=== PATIENT | male | born 1965 | race African-American/Black ===

== ENCOUNTER 2018-01-10 19:41 | Inpatient (IN) | payer MEDICAID ==
[~2018-01-10] VITALS: Ht 170.2 cm; Wt 98.0 kg
[2018-01-10] MEDS ORDERED: ACETAMINOPHEN 325MG TABLET PO STA (19:59)
[2018-01-10] MEDS ORDERED: SODIUM CHLORIDE 0.9% 1,000 ML IV ONE (19:59)
[2018-01-10] MEDS ORDERED: KETOROLAC 30MG/ML VIAL IV ONE (20:00)
[2018-01-10 20:31] LABS: BASOPHILS % 0.4 % (0.0-2.0); EOSINOPHILS % 0.8 % (0.0-5.0); HEMATOCRIT. 44.1 % (42.0-52.0); HEMOGLOBIN. 14.4 g/dL (14.0-18.0); LYMPHOCYTES % 9.1 % (20.0-50.0); MEAN CORPUSCULAR HEMOGLOBIN 25.2 pg (28.0-32.0); MEAN CORPUSCULAR VOLUME 77.2 fL (80.0-94.0); MEAN PLATELET VOLUME 9.3 fl (7.4-10.4); MONOCYTES % 6.9 % (2.0-8.0); NEUTROPHILS % 82.8 % (40.0-76.0); PLATELET 223 x1000/uL (130-400); RED BLOOD CELL COUNT 5.72 mill/uL (4.7-6.1); RED CELL DISTRIBUTION WIDTH 16.3 % (11.6-14.6)
[2018-01-10 20:40] LABS: INR 1.2; PROTHROMBIN TIME 12.2 sec (9.4-11.6)
[2018-01-10 20:42] LABS: CHLORIDE 101 mEq/L (98-107)
[2018-01-10] MEDS ORDERED: LEVOFLOXACIN 750MG PREMIX 150 ML IV ONE (20:45)
[2018-01-10] MEDS ORDERED: IPRATROPIUM/ALBUTEROL 0.5-3(2.5)MG/3ML NEB INH PRN (23:00)
[2018-01-10] MEDS ORDERED: ACETAMINOPHEN 325MG TABLET PO PRN (23:00)
[2018-01-10] MEDS ORDERED: HYDROCODONE/ACETAMINOPHEN 5/325MG TABLET PO PRN (23:00)
[2018-01-10] MEDS ORDERED: MAGNESIUM/ALUMINUM HYDROXIDE/SIMETHICONE 30ML UDC PO PRN (23:00)
[2018-01-10] MEDS ORDERED: DOCUSATE SODIUM 100MG CAPSULE PO PRN (23:00)
[2018-01-10] MEDS ORDERED: ONDANSETRON HCL 4MG/2ML VIAL IV PRN (23:00)
[2018-01-11] VITALS (10 sets, daily range): BP systolic 119–198; BP diastolic 65–143
[2018-01-11] LABS: CHLORIDE 102 mEq/L (98-107)
[2018-01-11] MEDS: CLONIDINE 0.1MG TABLET PO PRN ×4 (01:02→17:05)
[2018-01-11] MEDS: SODIUM CHLORIDE 0.9% 1,000 ML IV SCH ×2 (04:05→16:58)
[2018-01-11] MEDS ORDERED: DEXTROSE 50% WATER 50ML SYRINGE IV PRN (04:45)
[2018-01-11] MEDS ORDERED: CEFTRIAXONE 1 G PREMIX 50 ML IV SCH (05:00)
[2018-01-11] MEDS: BLOOD SUGAR DIAGNOSTIC STRIP TEST SCH ×4 (05:59→21:43)
[2018-01-11] MEDS ORDERED: AZITHROMYCIN 500 MG in DEXT 5% WATER 250 ML IV SCH (06:00)
[2018-01-11] MEDS: NIFEDIPINE XL 60MG TAB PO SCH (07:00)
[2018-01-11 07:08] LABS: CLARITY URINE CLEAR (CLEAR); COLOR URINE DARK YELLOW (YELLOW); KETONES URINE TRACE (NEGATIVE); LEUKOCYTE ESTERASE URINE NEGATIVE (NEGATIVE); NITRITE URINE NEGATIVE (NEGATIVE); OCCULT BLOOD URINE NEGATIVE (NEGATIVE); PROTEIN URINE 3+ (NEGATIVE); SPECIFIC GRAVITY URINE 1.037 (1.005-1.030)
[2018-01-11 07:46] LABS: *AMPHETAMINES SCREEN URINE NEGATIVE (NEGATIVE); *BARBITURATES SCREEN URINE NEGATIVE (NEGATIVE); *BENZODIAZEPINES SCREEN URINE NEGATIVE (NEGATIVE); *COCAINE SCREEN URINE PRESUMTIVE POSITIVE (NEGATIVE); CANNABINOID URINE SCREEN PRESUMTIVE POSITIVE (NEGATIVE); METHADONE URINE SCREEN NEGATIVE (NEGATIVE); OPIATES URINE SCREEN PRESUMTIVE POSITIVE (NEGATIVE); PHENCYCLIDINE URINE SCREEN NEGATIVE (NEGATIVE)
[2018-01-11] MEDS: ENOXAPARIN 30MG/0.3ML SYR SUBCUT SCH ×2 (08:05→21:45)
[2018-01-11] MEDS: INSULIN LISPRO 100 UNITS/ML SUBCUT SCH ×4 (08:05→21:55)
[2018-01-11] MEDS ORDERED: HYDRALAZINE 20MG/ML VIAL IV PRN (10:15)
[2018-01-11 10:29] LABS: BASOPHILS % 0.5 % (0.0-2.0); EOSINOPHILS % 2.3 % (0.0-5.0); HEMATOCRIT. 42.2 % (42.0-52.0); HEMOGLOBIN. 13.7 g/dL (14.0-18.0); MEAN CORPUSCULAR HEMOGLOBIN 24.9 pg (28.0-32.0); MEAN CORPUSCULAR VOLUME 76.5 fL (80.0-94.0); MEAN PLATELET VOLUME 9.5 fl (7.4-10.4); MONOCYTES % 8.2 % (2.0-8.0); PLATELET 227 x1000/uL (130-400); RED BLOOD CELL COUNT 5.51 mill/uL (4.7-6.1); RED CELL DISTRIBUTION WIDTH 16.3 % (11.6-14.6)
[2018-01-11] MEDS ORDERED: KETOROLAC 30MG/ML VIAL IV PRN (10:30)
[2018-01-11 11:05] LABS: CREATINE KINASE MB FRACTION 1.9 ng/mL (0.5-3.6); TROPONIN I 0.11 ng/mL (0.00-0.04)
[2018-01-11 15:27] LABS: CREATINE KINASE MB FRACTION 1.9 ng/mL (0.5-3.6); TROPONIN I 0.09 ng/mL (0.00-0.04)
[2018-01-11] MEDS ORDERED: NICOTINE 21MG PATCH TD NR (17:00)
[2018-01-11] MEDS: IPRATROPIUM/ALBUTEROL 0.5-3(2.5)MG/3ML NEB HHN SCH (21:12)
[2018-01-12] VITALS (13 sets, daily range): BP systolic 144–164; BP diastolic 59–118
[2018-01-12] MEDS: CLONIDINE 0.1MG TABLET PO PRN ×2 (00:37→21:32)
[2018-01-12] MEDS: IPRATROPIUM/ALBUTEROL 0.5-3(2.5)MG/3ML NEB HHN SCH ×4 (02:20→20:53)
[2018-01-12] MEDS: SODIUM CHLORIDE 0.9% 1,000 ML IV SCH (05:16)
[2018-01-12] MEDS: BLOOD SUGAR DIAGNOSTIC STRIP TEST SCH ×4 (06:29→21:12)
[2018-01-12] MEDS: INSULIN LISPRO 100 UNITS/ML SUBCUT SCH ×4 (07:20→21:28)
[2018-01-12] MEDS: CEFTRIAXONE 1 G PREMIX 50 ML IV SCH (08:34)
[2018-01-12] MEDS: AZITHROMYCIN 500 MG in DEXT 5% WATER 250 ML IV SCH (08:34)
[2018-01-12] MEDS: MULTIVITAMINS,THER W-MINERALS TABLET PO SCH (08:35)
[2018-01-12] MEDS: THIAMINE HCL 100MG TABLET PO SCH (08:35)
[2018-01-12] MEDS: NIFEDIPINE XL 60MG TAB PO SCH (08:35)
[2018-01-12] MEDS: FOLIC ACID/VITAMIN B COMP W-C TABLET PO SCH (08:36)
[2018-01-12] MEDS: ENOXAPARIN 30MG/0.3ML SYR SUBCUT SCH ×2 (08:36→21:32)
[2018-01-12] MEDS: NICOTINE 21MG PATCH TD SCH (08:40)
[2018-01-12 09:40] LABS: BASOPHILS % 0.8 % (0.0-2.0); EOSINOPHILS % 2.8 % (0.0-5.0); HEMATOCRIT. 41.3 % (42.0-52.0); HEMOGLOBIN. 13.4 g/dL (14.0-18.0); MEAN CORPUSCULAR HEMOGLOBIN 24.9 pg (28.0-32.0); MEAN CORPUSCULAR VOLUME 76.8 fL (80.0-94.0); MEAN PLATELET VOLUME 9.3 fl (7.4-10.4); MONOCYTES % 10.6 % (2.0-8.0); NEUTROPHILS % 64.8 % (40.0-76.0); PLATELET 230 x1000/uL (130-400); RED BLOOD CELL COUNT 5.37 mill/uL (4.7-6.1); RED CELL DISTRIBUTION WIDTH 15.8 % (11.6-14.6)
[2018-01-12 09:42] LABS: CHLORIDE 103 mEq/L (98-107)
[2018-01-12] MEDS: FOLIC ACID 1MG TABLET PO SCH (17:49)
[2018-01-12] MEDS: GUAIFENESIN 600MG ER TABLET PO SCH (21:31)
[2018-01-13] VITALS: BP 156/106
[2018-01-13 02:00] VITALS: BP 164/115
[2018-01-13] MEDS: IPRATROPIUM/ALBUTEROL 0.5-3(2.5)MG/3ML NEB HHN SCH ×2 (02:30→08:46)
[2018-01-13 04:01] VITALS: BP 156/113
[2018-01-13] MEDS: BLOOD SUGAR DIAGNOSTIC STRIP TEST SCH (05:16)
[2018-01-13] MEDS: CLONIDINE 0.1MG TABLET PO PRN (05:21)
[2018-01-13 06:00] VITALS: BP 167/99
[2018-01-13] MEDS: INSULIN LISPRO 100 UNITS/ML SUBCUT SCH (07:58)
[2018-01-13] MEDS: CEFTRIAXONE 1 G PREMIX 50 ML IV SCH (07:59)
[2018-01-13 08:00] VITALS: BP 152/72
[2018-01-13 09:00] VITALS: BP 153/97
[2018-01-13] MEDS: GUAIFENESIN 600MG ER TABLET PO SCH (09:00)
[2018-01-13] MEDS: NIFEDIPINE XL 60MG TAB PO SCH (09:00)
[2018-01-13] MEDS: ENOXAPARIN 30MG/0.3ML SYR SUBCUT SCH (09:00)
[2018-01-13] MEDS: AZITHROMYCIN 500 MG in DEXT 5% WATER 250 ML IV SCH (09:00)
[2018-01-13] MEDS: THIAMINE HCL 100MG TABLET PO SCH (09:00)
[2018-01-13] MEDS: FOLIC ACID 1MG TABLET PO SCH (09:00)
[2018-01-13] MEDS: MULTIVITAMINS,THER W-MINERALS TABLET PO SCH (09:00)
[2018-01-13] MEDS: FOLIC ACID/VITAMIN B COMP W-C TABLET PO SCH (09:00)
[2018-01-13] MEDS: NICOTINE 21MG PATCH TD SCH (09:00)
[2018-01-14] MEDS ORDERED: AZITHROMYCIN 500 MG in SODIUM CHLORIDE 0.9% 250 ML IV SCH (09:00)
== END 2018-01-13 11:00 | disposition left against medical advice (07) | DRG 720 ==
LOC: ER 19:41 → EDBD 19:41 → 3WST 22:45 → EDBEDREQSVC 23:08 → EDBEDREQTM 23:08 → EDBEDREQ 23:08
PROVIDERS: ADMIT Internal Medicine; ATTEND Internal Medicine
DX: A41.9 Sepsis, unspecified organism (principal); J96.01 Acute respiratory failure with hypoxia; J69.0 Pneumonitis due to inhalation of food and vomit; G93.40 Encephalopathy, unspecified; I10 Essential (primary) hypertension; E11.65 Type 2 diabetes mellitus with hyperglycemia; F14.10 Cocaine abuse, uncomplicated; F17.210 Nicotine dependence, cigarettes, uncomplicated; Z72.89 Other problems related to lifestyle
CPT/HCPCS: 36415; 71045; 78582; 80048; 80053; 80061; 80305; 81003; 82550; 82553; 82962; 83605; 83735; 84443; 84484; 85025; 85379; 85610; 87040; 87070; 87086; 87804; 93005; 93970; 94640; 96361; 96365; 96366; 96375; 99285; A9558; J0360; J0456; J0696; J1650; J1815; J1885; J1956; J7030; J7050; J7060; J7620

== ENCOUNTER 2019-05-27 20:45 | Inpatient (IN) | payer MEDICAID ==
[~2019-05-27] VITALS: Ht 185.4 cm; Wt 121.6 kg
[~2019-05-27 20:45] MED LIST: ASPI-1393 MT; ATOR40TA70 MT; FURO40TA5 MT; GLIP10TA10 PO; IBUP-2030 MT; ISOS20TA8 MT; METF-416 PO
[2019-05-27] MEDS ORDERED: ONDANSETRON HCL 4MG/2ML INJ IV STA (22:48)
[2019-05-27] MEDS ORDERED: MORPHINE SULFATE 4 MG/ML CPJ (NOT FOR IM USE) IV STA (22:48)
[2019-05-27] MEDS ORDERED: ASPIRIN 81MG TABLET PO ONE (23:00)
[2019-05-27] MEDS ORDERED: SODIUM CHLORIDE 0.9% 1,000 ML IV ONE (23:15)
[2019-05-27 23:45] LABS: BASOPHILS % 0.5 % (0.0-2.0); EOSINOPHILS % 3.1 % (0.0-5.0); HEMATOCRIT. 41.3 % (42.0-52.0); HEMOGLOBIN. 13.6 g/dL (14.0-18.0); LYMPHOCYTES % 31.4 % (20.0-50.0); MEAN CORPUSCULAR HEMOGLOBIN 25.8 pg (28.0-32.0); MEAN CORPUSCULAR VOLUME 78.4 fL (80.0-94.0); MEAN PLATELET VOLUME 9.9 fl (7.4-10.4); MONOCYTES % 7.1 % (2.0-8.0); NEUTROPHILS % 57.9 % (40.0-76.0); PLATELET 142 x1000/uL (130-400); RED BLOOD CELL COUNT 5.27 mill/uL (4.7-6.1); RED CELL DISTRIBUTION WIDTH 15.9 % (11.6-14.6)
[2019-05-27 23:50] LABS: CHLORIDE 100 mEq/L (98-107)
[2019-05-28] MEDS: NITROGLYCERIN 0.4MG TABLET SL SL PRN ×3 (00:02→10:11)
[2019-05-28] MEDS ORDERED: ENOXAPARIN 120MG/0.8ML SYR SUBCUT NR (02:00)
[2019-05-28] MEDS ORDERED: ACETAMINOPHEN 325MG TABLET PO PRN (08:15)
[2019-05-28] MEDS ORDERED: LORAZEPAM 0.5MG TABLET PO PRN (08:15)
[2019-05-28] MEDS ORDERED: ONDANSETRON HCL 4MG/2ML INJ IV PRN (08:15)
[2019-05-28] MEDS ORDERED: HYDROCODONE/ACETAMINOPHEN 5/325MG TABLET PO PRN (08:15)
[2019-05-28] MEDS ORDERED: DOCUSATE SODIUM 100MG CAPSULE PO PRN (08:15)
[2019-05-28] MEDS ORDERED: HYDRALAZINE 20MG/ML VIAL IV NR (08:15)
[2019-05-28] MEDS ORDERED: IPRATROPIUM/ALBUTEROL 0.5-3(2.5)MG/3ML NEB INH PRN (08:15)
[2019-05-28] MEDS: FUROSEMIDE 40MG/4ML VIAL IVP SCH ×2 (08:59→09:00)
[2019-05-28] MEDS: CLONIDINE 0.1MG TABLET PO PRN (10:14)
[2019-05-28 11:24] LABS: *AMPHETAMINES SCREEN URINE NEGATIVE (NEGATIVE); *BARBITURATES SCREEN URINE NEGATIVE (NEGATIVE); *BENZODIAZEPINES SCREEN URINE NEGATIVE (NEGATIVE); *COCAINE SCREEN URINE NEGATIVE (NEGATIVE); METHADONE URINE SCREEN NEGATIVE (NEGATIVE); OPIATES URINE SCREEN NEGATIVE (NEGATIVE)
[2019-05-28 11:25] LABS: CANNABINOID URINE SCREEN NEGATIVE (NEGATIVE); PHENCYCLIDINE URINE SCREEN NEGATIVE (NEGATIVE)
[2019-05-28 12:00] VITALS: BP 144/101
[2019-05-28 12:30] VITALS: BP 144/101
[2019-05-28 12:59] VITALS: BP 144/144
[2019-05-28 14:27] LABS: CREATINE KINASE 122 IU/L (39-308)
[2019-05-28 14:28] LABS: CREATINE KINASE MB FRACTION 1.1 ng/mL (0.5-3.6)
[2019-05-28 15:55] VITALS: BP 139/89
[2019-05-28] MEDS ORDERED: DEXTROSE 50% WATER 50ML SYRINGE IV PRN (16:15)
[2019-05-28] MEDS: BLOOD SUGAR DIAGNOSTIC STRIP TEST SCH ×2 (17:20→21:00)
[2019-05-28] MEDS: INSULIN LISPRO 100 UNITS/ML SUBCUT SCH ×2 (19:00→21:42)
[2019-05-28 20:00] VITALS: BP 168/103
[2019-05-28] MEDS ORDERED: ATORVASTATIN CALCIUM 40MG TABLET PO SCH (21:00)
[2019-05-28] MEDS: LISINOPRIL 10MG TABLET PO SCH (21:41)
[2019-05-28] MEDS: CARVEDILOL 12.5MG TABLET PO SCH (21:41)
[2019-05-29] VITALS (7 sets, daily range): BP systolic 143–168; BP diastolic 87–108
[2019-05-29] MEDS: CLONIDINE 0.1MG TABLET PO PRN (00:20)
[2019-05-29] MEDS: BLOOD SUGAR DIAGNOSTIC STRIP TEST SCH ×2 (06:23→12:44)
[2019-05-29] MEDS ORDERED: GLIPIZIDE 10MG TABLET PO SCH ×2 (07:00→07:20)
[2019-05-29] MEDS: FUROSEMIDE 40MG/4ML VIAL IVP SCH (08:41)
[2019-05-29] MEDS: CARVEDILOL 12.5MG TABLET PO SCH (08:42)
[2019-05-29] MEDS: LISINOPRIL 10MG TABLET PO SCH (08:44)
[2019-05-29] MEDS: INSULIN LISPRO 100 UNITS/ML SUBCUT SCH (09:08)
[2019-05-29 09:16] LABS: CHLORIDE 101 mEq/L (98-107)
[2019-05-29 09:22] LABS: LDL CHOLESTEROL 105 mg/dL (5-100); TOTAL IRON BINDING CAPACITY 248 ug/dL (250-450)
[2019-05-29 09:24] LABS: HDL CHOLESTEROL 47 mg/dL (40-59)
[2019-05-29 09:28] LABS: BASOPHILS % 0.8 % (0.0-2.0); EOSINOPHILS % 3.2 % (0.0-5.0); HEMATOCRIT. 42.3 % (42.0-52.0); HEMOGLOBIN. 13.9 g/dL (14.0-18.0); LYMPHOCYTES % 29.6 % (20.0-50.0); MEAN CORPUSCULAR HEMOGLOBIN 25.6 pg (28.0-32.0); MEAN CORPUSCULAR VOLUME 77.9 fL (80.0-94.0); MEAN PLATELET VOLUME 10.1 fl (7.4-10.4); MONOCYTES % 8.1 % (2.0-8.0); NEUTROPHILS % 58.3 % (40.0-76.0); PLATELET 159 x1000/uL (130-400); RED BLOOD CELL COUNT 5.43 mill/uL (4.7-6.1)
[2019-05-29] MEDS ORDERED: INSULIN LISPRO 100 UNITS/ML SUBCUT SCH ×2 (13:30→17:50)
[2019-05-29] MEDS ORDERED: DILTIAZEM HCL 90MG TABLET PO SCH (14:00)
[2019-05-29] MEDS ORDERED: BLOOD SUGAR DIAGNOSTIC STRIP TEST SCH (17:20)
[2019-05-29] MEDS ORDERED: INSULIN GLARGINE UD 100 UNITS/ML SYR SUBCUT SCH (22:00)
== END 2019-05-29 15:44 | disposition home or self-care (01) | DRG 203 ==
LOC: ER 20:45 → 6WST 05-28 01:27 → EDBEDREQTM 05-28 01:35 → EDBEDREQ 05-28 01:35 → ENRESERV 05-28 06:42
PROVIDERS: ADMIT Internal Medicine; ATTEND Internal Medicine
DX: M94.0 Chondrocostal junction syndrome [Tietze] (principal); I43 Cardiomyopathy in diseases classified elsewhere; I24.9 Acute ischemic heart disease, unspecified; I11.0 Hypertensive heart disease with heart failure; E11.65 Type 2 diabetes mellitus with hyperglycemia; E66.01 Morbid (severe) obesity due to excess calories; I50.42 Chronic combined systolic (congestive) and diastolic (congestive) heart failure; I16.1 Hypertensive emergency; D50.9 Iron deficiency anemia, unspecified; I49.3 Ventricular premature depolarization; F17.200 Nicotine dependence, unspecified, uncomplicated; J44.9 Chronic obstructive pulmonary disease, unspecified; M54.10 Radiculopathy, site unspecified; R07.89 Other chest pain; Z79.899 Other long term (current) drug therapy; Z79.84 Long term (current) use of oral hypoglycemic drugs; Z68.35 Body mass index [BMI] 35.0-35.9, adult
CPT/HCPCS: 36415; 71045; 80048; 80061; 80305; 82550; 82553; 82728; 82962; 83036; 83540; 83550; 83880; 84443; 84484; 85379; 93005; 93306; 96361; 96372; 96374; 99285; J0360; J1650; J1815; J1940; J7030

== ENCOUNTER 2019-09-15 23:34 | Inpatient (IN) | payer MEDICAID ==
[~2019-09-15] VITALS: Ht 185.4 cm; Wt 109.8 kg
[2019-09-16] MEDS ORDERED: NITROGLYCERIN OINT 1GM/INCH UDPKT TD ONE (00:45)
[2019-09-16] MEDS ORDERED: ASPIRIN 81MG TABLET PO ONE (00:45)
[2019-09-16 01:03] LABS: BASOPHILS % 0.9 % (0.0-2.0); EOSINOPHILS % 2.8 % (0.0-5.0); HEMATOCRIT. 39.7 % (42.0-52.0); HEMOGLOBIN. 13.2 g/dL (14.0-18.0); LYMPHOCYTES % 28.8 % (20.0-50.0); MEAN CORPUSCULAR HEMOGLOBIN 25.2 pg (28.0-32.0); MEAN PLATELET VOLUME 10.1 fl (7.4-10.4); MONOCYTES % 8.6 % (2.0-8.0); NEUTROPHILS % 58.9 % (40.0-76.0); PLATELET 155 x1000/uL (130-400); RED BLOOD CELL COUNT 5.22 mill/uL (4.7-6.1); RED CELL DISTRIBUTION WIDTH 14.9 % (11.6-14.6)
[2019-09-16 01:11] LABS: CHLORIDE 104 mEq/L (98-107)
[2019-09-16 03:35] VITALS: BP 157/100
[2019-09-16 04:00] VITALS: BP 157/100
[2019-09-16] MEDS ORDERED: LORAZEPAM 2MG/ML CPJ IV PRN (05:45)
[2019-09-16] MEDS ORDERED: CLONIDINE 0.1MG TABLET PO PRN (05:45)
[2019-09-16] MEDS ORDERED: GUAIFENESIN 200MG/10ML SUGAR FREE UDC PO PRN (05:45)
[2019-09-16] MEDS ORDERED: HYDROCODONE/ACETAMINOPHEN 5/325MG TABLET PO PRN (05:45)
[2019-09-16] MEDS ORDERED: DIPHENHYDRAMINE 50MG/ML VIAL IV PRN (05:45)
[2019-09-16] MEDS ORDERED: MORPHINE SULFATE 2 MG/ML CPJ (NOT FOR IM USE) IV PRN (05:45)
[2019-09-16] MEDS ORDERED: NA PHOS,M-B/NA PHOS,DI-BA ENEMA 118ML PR PRN (05:45)
[2019-09-16] MEDS ORDERED: ACETAMINOPHEN 325MG TABLET PO PRN (05:45)
[2019-09-16] MEDS ORDERED: MAGNESIUM/ALUMINUM HYDROXIDE/SIMETHICONE 30ML UDC PO PRN (05:45)
[2019-09-16] MEDS ORDERED: DOCUSATE SODIUM 100MG CAPSULE PO PRN (05:45)
[2019-09-16] MEDS ORDERED: IPRATROPIUM/ALBUTEROL 0.5-3(2.5)MG/3ML NEB NEB PRN (05:45)
[2019-09-16] MEDS ORDERED: ONDANSETRON HCL 4MG/2ML INJ IV PRN (05:45)
[2019-09-16] MEDS ORDERED: DEXTROSE 50% WATER 50ML SYRINGE IV PRN (06:00)
[2019-09-16] MEDS: BLOOD SUGAR DIAGNOSTIC STRIP TEST SCH ×4 (06:37→21:30)
[2019-09-16 08:10] VITALS: BP 147/92
[2019-09-16] MEDS: ASPIRIN 81MG EC TABLET PO SCH (09:00)
[2019-09-16] MEDS ORDERED: ENOXAPARIN 40MG/0.4ML SYR SUBCUT SCH (09:00)
[2019-09-16] MEDS: FUROSEMIDE 40MG/4ML VIAL IV SCH (10:02)
[2019-09-16] MEDS: INSULIN LISPRO 100 UNITS/ML SUBCUT SCH ×4 (10:05→21:56)
[2019-09-16 11:07] LABS: CHLORIDE 103 mEq/L (98-107)
[2019-09-16 11:59] VITALS: BP 138/86
[2019-09-16 13:04] LABS: METHADONE URINE SCREEN NEGATIVE (NEGATIVE); OPIATES URINE SCREEN NEGATIVE (NEGATIVE)
[2019-09-16 13:05] LABS: *AMPHETAMINES SCREEN URINE NEGATIVE (NEGATIVE); *BARBITURATES SCREEN URINE NEGATIVE (NEGATIVE); *BENZODIAZEPINES SCREEN URINE NEGATIVE (NEGATIVE); *COCAINE SCREEN URINE NEGATIVE (NEGATIVE); CANNABINOID URINE SCREEN NEGATIVE (NEGATIVE); PHENCYCLIDINE URINE SCREEN NEGATIVE (NEGATIVE)
[2019-09-16] MEDS: GUAIFENESIN 600MG ER TABLET PO SCH (16:31)
[2019-09-16 16:32] VITALS: BP 143/88
[2019-09-16 17:00] LABS: CREATINE KINASE 213 IU/L (39-308)
[2019-09-16 17:01] LABS: CREATINE KINASE MB FRACTION < 1.0 ng/mL (0.5-3.6)
[2019-09-16 20:00] VITALS: BP 162/101
[2019-09-16] MEDS: IPRATROPIUM/ALBUTEROL 0.5-3(2.5)MG/3ML NEB HHN SCH (20:21)
[2019-09-16] MEDS: BUDESONIDE 0.5MG/2ML NEB HHN SCH (20:21)
[2019-09-17] VITALS: BP 149/88
[2019-09-17] MEDS: IPRATROPIUM/ALBUTEROL 0.5-3(2.5)MG/3ML NEB HHN SCH ×2 (02:35→08:19)
[2019-09-17 04:00] VITALS: BP 155/94
[2019-09-17] MEDS: BLOOD SUGAR DIAGNOSTIC STRIP TEST SCH ×2 (06:29→12:20)
[2019-09-17 07:08] LABS: BASOPHILS % 0.7 % (0.0-2.0); EOSINOPHILS % 2.9 % (0.0-5.0); HEMATOCRIT. 41.3 % (42.0-52.0); HEMOGLOBIN. 13.6 g/dL (14.0-18.0); LYMPHOCYTES % 25.2 % (20.0-50.0); MONOCYTES % 8.6 % (2.0-8.0); NEUTROPHILS % 62.6 % (40.0-76.0); PLATELET 153 x1000/uL (130-400); RED BLOOD CELL COUNT 5.43 mill/uL (4.7-6.1)
[2019-09-17 07:50] LABS: CHLORIDE 104 mEq/L (98-107)
[2019-09-17 08:00] VITALS: BP 166/98
[2019-09-17 08:01] LABS: LDL CHOLESTEROL 118 mg/dL (5-100)
[2019-09-17 08:02] LABS: CREATINE KINASE 166 IU/L (39-308); T4 FREE 1.05 ng/dL (0.76-1.46)
[2019-09-17 08:04] LABS: CREATINE KINASE MB FRACTION < 1.0 ng/mL (0.5-3.6); HDL CHOLESTEROL 43 mg/dL (40-59)
[2019-09-17] MEDS: INSULIN LISPRO 100 UNITS/ML SUBCUT SCH (08:18)
[2019-09-17] MEDS: BUDESONIDE 0.5MG/2ML NEB HHN SCH (08:19)
[2019-09-17] MEDS: ASPIRIN 81MG EC TABLET PO SCH (08:32)
[2019-09-17] MEDS: GUAIFENESIN 600MG ER TABLET PO SCH (08:32)
[2019-09-17] MEDS ORDERED: ENOXAPARIN 30MG/0.3ML SYR SUBCUT SCH (09:00)
[2019-09-17] MEDS: FUROSEMIDE 40MG/4ML VIAL IV SCH (10:26)
[2019-09-17 12:42] VITALS: BP 166/98
== END 2019-09-17 13:10 | disposition home or self-care (01) | DRG 194 ==
LOC: ER 23:34 → 6WST 09-16 02:17 → EDBEDREQTM 09-16 02:20 → EDBEDREQ 09-16 02:20 → ENRESERV 09-16 02:49
PROVIDERS: ADMIT Internal Medicine; ATTEND Internal Medicine
DX: I11.0 Hypertensive heart disease with heart failure (principal); J96.00 Acute respiratory failure, unspecified whether with hypoxia or hypercapnia; E11.65 Type 2 diabetes mellitus with hyperglycemia; I50.32 Chronic diastolic (congestive) heart failure; E78.5 Hyperlipidemia, unspecified; F17.210 Nicotine dependence, cigarettes, uncomplicated; J06.9 Acute upper respiratory infection, unspecified; J44.9 Chronic obstructive pulmonary disease, unspecified; Z79.82 Long term (current) use of aspirin; Z79.899 Other long term (current) drug therapy
CPT/HCPCS: 36415; 71045; 80048; 80061; 80305; 82550; 82553; 82962; 83036; 83880; 84439; 84443; 84484; 85379; 87804; 93005; 93306; 93970; 94640; 96374; 99285; J1650; J1815; J1940; J7620; J7626

== ENCOUNTER 2020-12-21 12:56 | Emergency (ER) | payer MEDICAID, OTHER ==
[~2020-12-21] VITALS: Ht 185.4 cm; Wt 123.0 kg
[~2020-12-21 12:56] MED LIST changes: -ASPI-1393 MT; +ASPI-1497 MT
[2020-12-21] MEDS ORDERED: VISCOUS LIDOCAINE 2% 15 ML UDC PO STA (13:37)
[2020-12-21] MEDS ORDERED: MAGNESIUM/ALUMINUM HYDROXIDE/SIMETHICONE 30ML UDC PO STA (13:37)
[2020-12-21] MEDS ORDERED: DICYCLOMINE 10 MG/5 ML ORAL SYR PO STA (13:37)
[2020-12-21 14:04] LABS: BASOPHILS % 0.4 % (0.0-2.0); EOSINOPHILS % 2.2 % (0.0-5.0); HEMATOCRIT. 45.6 % (42.0-52.0); HEMOGLOBIN. 14.8 g/dL (14.0-18.0); MEAN CORPUSCULAR HEMOGLOBIN 24.8 pg (28.0-32.0); MEAN CORPUSCULAR VOLUME 76.4 fL (80.0-94.0); MEAN PLATELET VOLUME 10.3 fl (7.4-10.4); MONOCYTES % 6.9 % (2.0-8.0); NEUTROPHILS % 65.5 % (40.0-76.0); PLATELET 169 x1000/uL (130-400); RED BLOOD CELL COUNT 5.97 mill/uL (4.7-6.1)
[2020-12-21 14:08] LABS: CHLORIDE 98 mEq/L (98-107)
[2020-12-21 14:13] LABS: INR 1.1; PROTHROMBIN TIME 11.1 sec (9.6-11.0)
[2020-12-21] MEDS ORDERED: OMEP40CA12 MT (15:39)
[2020-12-21] MEDS ORDERED: INSULIN REGULAR (HUMULIN R) 300UNITS/3ML VIAL SUBCUT ONE (15:45)
[2020-12-21 16:34] VITALS: BP 104/63
== END 2020-12-21 16:40 | disposition home or self-care (01) ==
LOC: ER 12:56
DX: R10.13 Epigastric pain (principal); I11.0 Hypertensive heart disease with heart failure; I50.9 Heart failure, unspecified; E78.00 Pure hypercholesterolemia, unspecified; E11.9 Type 2 diabetes mellitus without complications; Z79.84 Long term (current) use of oral hypoglycemic drugs; Z79.82 Long term (current) use of aspirin
CPT/HCPCS: 36415; 71045; 74176; 80053; 83690; 83880; 84484; 85025; 85610; 93005; 96372; 99285; J1815; Z7610

== ENCOUNTER 2021-11-15 10:47 | Emergency (ER) | payer MEDICAID, OTHER ==
[~2021-11-15] VITALS: Ht 185.4 cm; Wt 122.0 kg
[~2021-11-15 10:47] MED LIST changes: +HYDR-4001 MT; +INSU100I28 SQ; +OMEP40CA20 MT
[2021-11-15 11:46] LABS: BASOPHILS % 0.9 % (0.0-2.0); HEMATOCRIT. 49.2 % (42.0-52.0); HEMOGLOBIN. 16.1 g/dL (14.0-18.0); LYMPHOCYTES % 27.4 % (20.0-50.0); MEAN CORPUSCULAR HEMOGLOBIN 24.7 pg (28.0-32.0); MEAN CORPUSCULAR VOLUME 75.6 fL (80.0-94.0); MEAN PLATELET VOLUME 9.4 fl (7.4-10.4); MONOCYTES % 9.2 % (2.0-8.0); NEUTROPHILS % 59.5 % (40.0-76.0); PLATELET 219 x1000/uL (130-400); RED BLOOD CELL COUNT 6.51 mill/uL (4.7-6.1)
[2021-11-15 11:53] LABS: CHLORIDE 105 mEq/L (98-107)
[2021-11-15] MEDS ORDERED: PROCHLORPERAZINE 10MG/2ML VIAL IV ONE (12:00)
[2021-11-15] MEDS ORDERED: ACETAMINOPHEN 325MG TABLET PO ONE (12:00)
[2021-11-15 12:45] VITALS: BP 153/89
== END 2021-11-15 14:40 | disposition home or self-care (01) ==
LOC: ER 10:47
DX: I11.0 Hypertensive heart disease with heart failure (principal); I50.9 Heart failure, unspecified; E11.9 Type 2 diabetes mellitus without complications; E78.00 Pure hypercholesterolemia, unspecified; Z79.899 Other long term (current) drug therapy
CPT/HCPCS: 36415; 70450; 71045; 80048; 80076; 83880; 84484; 85025; 93005; 99285; J0780

== ENCOUNTER 2021-11-19 00:09 | Emergency (ER) | payer OTHER ==
[~2021-11-19] VITALS: Ht 185.4 cm; Wt 130.0 kg
[2021-11-19] MEDS ORDERED: CLONIDINE 0.1MG TABLET PO ONE (01:00)
[2021-11-19] MEDS ORDERED: KETOROLAC 60MG/2ML VIAL IM ONE (01:00)
[2021-11-19] MEDS ORDERED: LABETALOL 5MG/ML SYR 20 MG/4 ML SYRINGE IV ONE (04:15)
[2021-11-19 05:30] VITALS: BP 176/106
== END 2021-11-19 08:32 | disposition home or self-care (01) ==
LOC: ER 00:09
DX: I11.0 Hypertensive heart disease with heart failure (principal); I50.9 Heart failure, unspecified; E11.9 Type 2 diabetes mellitus without complications; Z79.82 Long term (current) use of aspirin; Z79.899 Other long term (current) drug therapy
CPT/HCPCS: 96374; 99283; J3490; J1885

== ENCOUNTER 2021-12-26 10:28 | Emergency (ER) | payer MEDICAID, OTHER ==
[~2021-12-26] VITALS: Ht 185.4 cm; Wt 127.0 kg
[2021-12-26] MEDS ORDERED: ACETAMINOPHEN 325MG TABLET PO STA (10:52)
[2021-12-26] MEDS ORDERED: SODIUM CHLORIDE 0.9% 1,000 ML IV ONE ×2 (11:00→11:30)
[2021-12-26] MEDS ORDERED: METOCLOPRAMIDE HCL 10MG/2ML VIAL IV ONE (11:30)
[2021-12-26] MEDS ORDERED: DIPHENHYDRAMINE 50MG/ML VIAL IV ONE (11:30)
[2021-12-26 12:23] LABS: BASOPHILS % 1.2 % (0.0-2.0); EOSINOPHILS % 2.4 % (0.0-5.0); HEMATOCRIT. 45.2 % (42.0-52.0); HEMOGLOBIN. 14.6 g/dL (14.0-18.0); LYMPHOCYTES % 29.4 % (20.0-50.0); MEAN CORPUSCULAR HEMOGLOBIN 24.6 pg (28.0-32.0); MEAN PLATELET VOLUME 10.2 fl (7.4-10.4); MONOCYTES % 7.1 % (2.0-8.0); NEUTROPHILS % 59.9 % (40.0-76.0); PLATELET 157 x1000/uL (130-400); RED BLOOD CELL COUNT 5.95 mill/uL (4.7-6.1); RED CELL DISTRIBUTION WIDTH 15.9 % (11.6-14.6)
[2021-12-26 12:29] LABS: CHLORIDE 102 mEq/L (98-107)
[2021-12-26 12:39] LABS: BETA HYDROXYBUTYRATE 0.1 mMol/L (0.0-0.3)
[2021-12-26 12:45] LABS: CLARITY URINE CLEAR (CLEAR); COLOR URINE YELLOW (YELLOW); KETONES URINE NEGATIVE (NEGATIVE); LEUKOCYTE ESTERASE URINE NEGATIVE (NEGATIVE); NITRITE URINE NEGATIVE (NEGATIVE); OCCULT BLOOD URINE NEGATIVE (NEGATIVE); PROTEIN URINE 1+ (NEGATIVE); SPECIFIC GRAVITY URINE 1.031 (1.005-1.030)
[2021-12-26] MEDS ORDERED: INSULIN REGULAR (HUMULIN R) 300UNITS/3ML VIAL SUBCUT NR (13:15)
[2021-12-26] MEDS ORDERED: IBUP-2028 MT (14:50)
[2021-12-26] MEDS ORDERED: ACET-2708 MT (14:50)
[2021-12-26 15:19] VITALS: BP 150/90
== END 2021-12-26 15:29 | disposition home or self-care (01) ==
LOC: ER 10:28
DX: E11.65 Type 2 diabetes mellitus with hyperglycemia (principal); R51.9 Headache, unspecified; I10 Essential (primary) hypertension; Z79.4 Long term (current) use of insulin; Z79.84 Long term (current) use of oral hypoglycemic drugs; Z79.82 Long term (current) use of aspirin; Z79.899 Other long term (current) drug therapy
CPT/HCPCS: 36415; 70450; 80053; 81003; 82010; 82962; 83735; 84484; 85025; 93005; 96361; 96372; 96374; 96375; 99285; J1200; J1815; J2765; J7030; Z7610

== ENCOUNTER 2022-06-11 14:35 | Emergency (ER) | payer MEDICAID, OTHER ==
[~2022-06-11] VITALS: Ht 185.4 cm; Wt 125.0 kg
[~2022-06-11 14:35] MED LIST changes: +ACET-2708 MT; +IBUP-2028 MT
[2022-06-11 15:10] VITALS: BP 159/110
== END 2022-06-11 20:42 | disposition left against medical advice (07) ==
LOC: ER 14:35
DX: Z53.21 Procedure and treatment not carried out due to patient leaving prior to being seen by health care provider (principal)

== ENCOUNTER 2022-06-13 09:38 | Emergency (ER) | payer OTHER ==
[~2022-06-13] VITALS: Ht 185.4 cm; Wt 125.0 kg
[2022-06-13] MEDS ORDERED: NAP5EC MT (13:50)
[2022-06-13] MEDS ORDERED: CYCL10TA21 MT (13:50)
[2022-06-13] MEDS ORDERED: LIDO700A30 TP (13:50)
[2022-06-13] MEDS ORDERED: KETOROLAC 60MG/2ML VIAL IM ONE (14:00)
[2022-06-13] MEDS ORDERED: LIDOCAINE 5% PATCH TOP SCH (14:00)
[2022-06-13 14:18] VITALS: BP 133/91
== END 2022-06-13 14:19 | disposition home or self-care (01) ==
LOC: ER 09:38
DX: S16.1XXA Strain of muscle, fascia and tendon at neck level, initial encounter (principal); E11.9 Type 2 diabetes mellitus without complications; I10 Essential (primary) hypertension; Z79.4 Long term (current) use of insulin; V43.52XA Car driver injured in collision with other type car in traffic accident, initial encounter; Y93.89 Activity, other specified; Y92.488 Other paved roadways as the place of occurrence of the external cause
CPT/HCPCS: 96372; 99283; J1885

== ENCOUNTER 2022-10-23 13:41 | Emergency (ER) | payer MEDICAID, OTHER ==
[~2022-10-23] VITALS: Ht 185.4 cm; Wt 126.0 kg
[~2022-10-23 13:41] MED LIST changes: +CYCL10TA21 MT; +LIDO700A30 TP; +NAP5EC MT
[2022-10-23] MEDS ORDERED: ACETAMINOPHEN 325MG TABLET PO ONE (16:45)
[2022-10-23] MEDS ORDERED: IBUPROFEN 400MG TABLET PO ONE (16:45)
[2022-10-23 17:15] VITALS: BP 151/101
== END 2022-10-23 18:25 | disposition home or self-care (01) ==
LOC: ER 13:41
DX: M25.562 Pain in left knee (principal); E11.9 Type 2 diabetes mellitus without complications; I10 Essential (primary) hypertension; Z79.899 Other long term (current) drug therapy
CPT/HCPCS: 71045; 73562; 99284

== ENCOUNTER 2022-12-09 14:25 | Emergency (ER) | payer MEDICAID ==
[~2022-12-09] VITALS: Ht 185.4 cm; Wt 119.0 kg
[2022-12-09 15:38] VITALS: BP 136/104
[2022-12-09 17:05] LABS: BASOPHILS % 1.3 % (0.0-2.0); EOSINOPHILS % 3.4 % (0.0-5.0); HEMATOCRIT. 48.2 % (42.0-52.0); HEMOGLOBIN. 15.7 g/dL (14.0-18.0); LYMPHOCYTES % 28.3 % (20.0-50.0); MEAN CORPUSCULAR HEMOGLOBIN 24.8 pg (28.0-32.0); MEAN CORPUSCULAR VOLUME 76.5 fL (80.0-94.0); MEAN PLATELET VOLUME 9.5 fl (7.4-10.4); MONOCYTES % 7.6 % (2.0-8.0); NEUTROPHILS % 59.4 % (40.0-76.0); PLATELET 193 x1000/uL (130-400)
[2022-12-09 17:12] LABS: CHLORIDE 105 mEq/L (98-107)
[2022-12-09 17:18] LABS: ETHANOL BLOOD < 10 mg/dL
[2022-12-09] MEDS ORDERED: KETOROLAC 60MG/2ML VIAL IM STA (21:30)
[2022-12-09 22:56] LABS: CLARITY URINE CLEAR (CLEAR); COLOR URINE YELLOW (YELLOW); KETONES URINE TRACE (NEGATIVE); LEUKOCYTE ESTERASE URINE NEGATIVE (NEGATIVE); NITRITE URINE NEGATIVE (NEGATIVE); OCCULT BLOOD URINE NEGATIVE (NEGATIVE); PROTEIN URINE 1+ (NEGATIVE); SPECIFIC GRAVITY URINE 1.042 (1.005-1.030); UROBILINOGEN URINE 0.2 E.U./dL (0.2-1.0)
[2022-12-09 23:10] LABS: *AMPHETAMINES SCREEN URINE NEGATIVE (NEGATIVE); *BARBITURATES SCREEN URINE NEGATIVE (NEGATIVE); *COCAINE SCREEN URINE NEGATIVE (NEGATIVE); CANNABINOID URINE SCREEN NEGATIVE (NEGATIVE); METHADONE URINE SCREEN NEGATIVE (NEGATIVE); OPIATES URINE SCREEN NEGATIVE (NEGATIVE); PHENCYCLIDINE URINE SCREEN NEGATIVE (NEGATIVE)
[2022-12-09 23:15] LABS: *BENZODIAZEPINES SCREEN URINE NEGATIVE (NEGATIVE)
[2022-12-09] MEDS ORDERED: IBUP-2029 MT (23:43)
== END 2022-12-10 00:10 | disposition home or self-care (01) ==
LOC: ER 14:49
DX: K85.90 Acute pancreatitis without necrosis or infection, unspecified (principal); I10 Essential (primary) hypertension; E11.9 Type 2 diabetes mellitus without complications; Z79.82 Long term (current) use of aspirin
CPT/HCPCS: 36415; 74176; 80053; 80305; 80320; 81003; 83690; 85025; 85610; 93005; 96372; 99285; J1885; Z7610; G0480

== ENCOUNTER 2022-12-11 15:21 | Inpatient (IN) | payer MEDICAID, OTHER ==
[~2022-12-11] VITALS: Ht 185.4 cm; Wt 120.2 kg
[~2022-12-11 15:21] MED LIST changes: +IBUP-2029 MT
[2022-12-11] MEDS ORDERED: MORPHINE SULFATE 4 MG/ML CPJ (NOT FOR IM USE) IV ONE (17:30)
[2022-12-11] MEDS ORDERED: SODIUM CHLORIDE 0.9% 1,000 ML IV ONE (17:30)
[2022-12-11] MEDS ORDERED: ONDANSETRON HCL 4MG/2ML INJ IV ONE (17:30)
[2022-12-11 17:50] LABS: BASOPHILS % 0.8 % (0.0-2.0); EOSINOPHILS % 3.2 % (0.0-5.0); LYMPHOCYTES % 27.4 % (20.0-50.0); MEAN CORPUSCULAR HEMOGLOBIN 25.4 pg (28.0-32.0); MEAN CORPUSCULAR VOLUME 76.2 fL (80.0-94.0); MEAN PLATELET VOLUME 9.5 fl (7.4-10.4); MONOCYTES % 8.3 % (2.0-8.0); NEUTROPHILS % 60.3 % (40.0-76.0); PLATELET 194 x1000/uL (130-400); RED BLOOD CELL COUNT 5.91 mill/uL (4.7-6.1); RED CELL DISTRIBUTION WIDTH 16.2 % (11.6-14.6)
[2022-12-11 17:53] LABS: CHLORIDE 104 mEq/L (98-107)
[2022-12-12] MEDS ORDERED: KETOROLAC 30MG/ML VIAL IV ONE
[2022-12-12] MEDS ORDERED: ACETAMINOPHEN 325MG TABLET PO ONE
[2022-12-12] MEDS: ONDANSETRON HCL 4MG/2ML INJ IV NR (00:12)
[2022-12-12 03:30] VITALS: BP 145/85
[2022-12-12] MEDS ORDERED: MORPHINE SULFATE 2 MG/ML CPJ (NOT FOR IM USE) IV PRN (06:30)
[2022-12-12] MEDS ORDERED: ONDANSETRON HCL 4MG/2ML INJ IV PRN (06:30)
[2022-12-12] MEDS ORDERED: NALOXONE HCL 0.4MG/ML VIAL IV PRN (06:30)
[2022-12-12 07:40] VITALS: BP 140/89
[2022-12-12] MEDS ORDERED: PANTOPRAZOLE SODIUM 40 MG/VIAL IV SCH (09:00)
[2022-12-12] MEDS: DEXT 5%/0.45% NACL KCL 20MEQ/L 1,000 ML IV SCH ×2 (10:17→16:22)
[2022-12-12 12:00] VITALS: BP 148/96
[2022-12-12 16:00] VITALS: BP 176/98
[2022-12-12] MEDS ORDERED: AMLODIPINE 10MG TABLET PO NR (16:15)
[2022-12-12] MEDS ORDERED: DEXTROSE 50% WATER 50ML SYRINGE IV PRN (17:00)
[2022-12-12] MEDS ORDERED: BLOOD SUGAR DIAGNOSTIC STRIP TEST SCH (17:20)
[2022-12-12] MEDS ORDERED: INSULIN LISPRO 100 UNITS/ML SUBCUT SCH (17:50)
[2022-12-12] MEDS ORDERED: CLONIDINE 0.1MG TABLET PO NR (18:45)
[2022-12-12] MEDS ORDERED: ENALAPRIL 5MG TABLET PO NR (18:45)
[2022-12-12] MEDS ORDERED: CARVEDILOL 6.25 MG TABLET PO NR (18:45)
[2022-12-12 20:00] VITALS: BP 174/100
[2022-12-12] MEDS ORDERED: SPIRONOLACTONE 25MG TABLET PO NR (20:21)
[2022-12-12 22:52] VITALS: BP 158/98
[2022-12-13] MEDS ORDERED: AMLODIPINE 10MG TABLET PO SCH (09:00)
== END 2022-12-12 23:25 | disposition home or self-care (01) | DRG 282 ==
LOC: ER 15:21 → MICUSO 22:17 → EDBEDREQ 22:20 → 6EST 12-12 03:34
PROVIDERS: ADMIT Internal Medicine; ATTEND Internal Medicine
DX: K85.90 Acute pancreatitis without necrosis or infection, unspecified (principal); N17.0 Acute kidney failure with tubular necrosis; E11.9 Type 2 diabetes mellitus without complications; E66.9 Obesity, unspecified; I10 Essential (primary) hypertension; Z20.822 Contact with and (suspected) exposure to COVID-19; Z68.35 Body mass index [BMI] 35.0-35.9, adult
CPT/HCPCS: 36415; 71045; 76700; 80053; 82962; 85025; 87426; 99285; C9113; J1815; J1885; J2405; J7030

== ENCOUNTER 2023-05-11 10:21 | Emergency (ER) | payer MEDICAID, OTHER ==
[~2023-05-11] VITALS: Ht 185.4 cm; Wt 120.0 kg
[2023-05-11 10:33] VITALS: O2SAT 98
[2023-05-11 10:47] LABS: BASOPHILS % 0.2 % (0.0-2.0); EOSINOPHILS % 0.2 % (0.0-5.0); HEMOGLOBIN. 15.9 g/dL (14.0-18.0); LYMPHOCYTES % 7.2 % (20.0-50.0); MEAN CORPUSCULAR HEMOGLOBIN 25.1 pg (28.0-32.0); MEAN CORPUSCULAR VOLUME 77.1 fL (80.0-94.0); MEAN PLATELET VOLUME 9.4 fl (7.4-10.4); MONOCYTES % 8.2 % (2.0-8.0); NEUTROPHILS % 84.2 % (40.0-76.0); PLATELET 173 x1000/uL (130-400); RED BLOOD CELL COUNT 6.35 mill/uL (4.7-6.1); RED CELL DISTRIBUTION WIDTH 16.3 % (11.6-14.6)
[2023-05-11 11:07] LABS: CHLORIDE 103 mEq/L (98-107)
[2023-05-11] MEDS ORDERED: KETOROLAC 30MG/ML VIAL IV SCH (12:29)
[2023-05-11 12:30] LABS: CLARITY URINE CLEAR (CLEAR); COLOR URINE YELLOW (YELLOW); KETONES URINE 1+ (NEGATIVE); LEUKOCYTE ESTERASE URINE NEGATIVE (NEGATIVE); NITRITE URINE NEGATIVE (NEGATIVE); OCCULT BLOOD URINE NEGATIVE (NEGATIVE); PH URINE 5.5 (4.5-8.0); PROTEIN URINE 3+ (NEGATIVE); SPECIFIC GRAVITY URINE 1.041 (1.005-1.030); UROBILINOGEN URINE 0.2 E.U./dL (0.2-1.0)
[2023-05-11] MEDS ORDERED: ACETAMINOPHEN 325MG TABLET PO ONE (12:30)
[2023-05-11] MEDS ORDERED: SODIUM CHLORIDE 0.9% 1,000 ML IV ONE (12:30)
[2023-05-11] MEDS ORDERED: ONDANSETRON HCL 4MG/2ML INJ IV ONE (12:30)
[2023-05-11] MEDS ORDERED: SODIUM CHLORIDE 0.9% 1000ML BAG (SEPSIS BOLUS) IV ONE (12:30)
[2023-05-11] MEDS ORDERED: KETOROLAC 15MG/ML VIAL IV SCH (12:45)
[2023-05-11] MEDS ORDERED: ONDA4TAB50 MT (16:36)
[2023-05-11] MEDS ORDERED: T3 PO (16:36)
[2023-05-11] MEDS ORDERED: AMOX1TAB16 MT (16:36)
[2023-05-11] MEDS ORDERED: DICY20TA2 MT (16:40)
[2023-05-11 17:35] VITALS: BP 166/100; PULSE 86; RESP 20; TEMP 98.6
== END 2023-05-11 17:37 | disposition home or self-care (01) ==
LOC: ER 10:21
DX: A08.4 Viral intestinal infection, unspecified (principal); E11.9 Type 2 diabetes mellitus without complications; I10 Essential (primary) hypertension; Z79.899 Other long term (current) drug therapy
CPT/HCPCS: 80053; 81003; 83605; 83690; 85025; 87040; 87086; 36415; 74176; 93005; 96361; 96374; 96375; 99285; J1885 ×2; J2405; J7030; Z7610 ×4

== ENCOUNTER 2023-09-06 14:24 | Emergency (ER) | payer SELFPAY ==
[~2023-09-06] VITALS: Ht 185.4 cm; Wt 122.5 kg
[~2023-09-06 14:24] MED LIST changes: +AMOX1TAB16 MT; +DICY20TA2 MT; +ONDA4TAB50 MT; +T3 PO
[2023-09-06 14:43] VITALS: O2SAT 100
[2023-09-06 15:01] LABS: DIFFERENTIAL COMMENT 0; EOSINOPHILS % 2.4 % (0.0-5.0); HEMATOCRIT. 51.3 % (42.0-52.0); HEMOGLOBIN. 16.2 g/dL (14.0-18.0); LYMPHOCYTES % 22.7 % (20.0-50.0); MEAN CORPUSCULAR HEMOGLOBIN 24.2 pg (28.0-32.0); MEAN CORPUSCULAR HGB CONC 31.7 g/dL (31.0-37.0); MEAN CORPUSCULAR VOLUME 76.5 fL (80.0-94.0); MEAN PLATELET VOLUME 10.1 fl (7.4-10.4); MONOCYTES % 7.8 % (2.0-8.0); NEUTROPHILS % 66.1 % (40.0-76.0); PLATELET 190 x1000/uL (130-400); RED BLOOD CELL COUNT 6.71 mill/uL (4.7-6.1); RED CELL DISTRIBUTION WIDTH 16.4 % (11.6-14.6); WHITE BLOOD COUNT 7.5 x1000/uL (4.5-11.0)
[2023-09-06 15:10] LABS: CHLORIDE 101 mEq/L (98-107); INDEX HEMOLYSI 1 (1-3); INDEX ICTERIC 1 (1-4); INDEX LIPEMIC 1 (1-3); POTASSIUM 3.9 mEq/L (3.5-5.1); SODIUM 136 mEq/L (136-145)
[2023-09-06 15:12] LABS: INR 1.1; PARTIAL THROMBOPLASTIN TIME 27.6 sec (23.4-31.0); PROTHROMBIN TIME 11.3 sec (9.6-11.0)
[2023-09-06 15:21] LABS: ALANINE AMINOTRANSFERASE 18 IU/L (13-61); ALBUMIN 3.9 g/dL (3.4-5.0); ASPARTATE AMINOTRANSFERASE 13 IU/L (15-37); BILIRUBIN TOTAL 0.5 mg/dL (0.1-1.0); CALCIUM 9.6 mg/dL (8.5-10.1); CARBON DIOXIDE 31 mEq/L (21-32); CREATININE 1.4 mg/dL (0.6-1.3); GLUCOSE 319 mg/dL (70-105); NT PRO B-TYPE NATRIURETIC PEP 1071 pg/mL (5-125); PROTEIN TOTAL 8.4 g/dL (6.0-8.3); TROPONIN I HIGH SENSITIVITY 54 ng/L (<78); UREA NITROGEN BLOOD 16 mg/dL (7-21)
[2023-09-06 17:48] LABS: ETHANOL BLOOD < 10 mg/dL (<10)
[2023-09-06] MEDS ORDERED: HYDROCODONE/ACETAMINOPHEN 5/325MG TABLET PO ONE (18:45)
[2023-09-06] MEDS ORDERED: ASPIRIN 81MG TABLET PO ONE (18:45)
[2023-09-06 19:30] VITALS: BP 199/133; PULSE 93; RESP 17; TEMP 98.4
== END 2023-09-06 19:54 | disposition home or self-care (01) ==
LOC: ER 14:55
DX: I20.0 Unstable angina (principal); I11.0 Hypertensive heart disease with heart failure; I50.9 Heart failure, unspecified; E11.9 Type 2 diabetes mellitus without complications; Z79.899 Other long term (current) drug therapy
CPT/HCPCS: 36415; 71045; 80053; 80320; 83880; 84484; 85025; 93005; 93971; 99285; G0480

== ENCOUNTER 2024-11-22 23:50 | Emergency (ER) | payer OTHER ==
[~2024-11-22] VITALS: Ht 185.4 cm; Wt 112.0 kg
[~2024-11-22 23:50] MED LIST changes: +ENAL-79 PO; -GLIP10TA10 PO; +GLIP10TA17 PO; -IBUP-2028 MT; -IBUP-2029 MT; -NAP5EC MT; +NAPR-1495 MT
[2024-11-23 00:08] VITALS: O2SAT 100
[2024-11-23 00:14] VITALS: BP 182/120; PULSE 80; RESP 16; TEMP 98; O2SAT 100
[2024-11-23] MEDS ORDERED: LIDO700A15 TP (01:44)
== END 2024-11-23 01:52 | disposition home or self-care (01) ==
LOC: ER 23:50
DX: M79.652 Pain in left thigh (principal); E11.9 Type 2 diabetes mellitus without complications; I11.0 Hypertensive heart disease with heart failure; I50.9 Heart failure, unspecified; Z79.4 Long term (current) use of insulin; Z79.82 Long term (current) use of aspirin; Z79.84 Long term (current) use of oral hypoglycemic drugs; Z79.899 Other long term (current) drug therapy; Z91.148 Patient's other noncompliance with medication regimen for other reason
CPT/HCPCS: 71045; 93005; 99283; 99284; 99285

== ENCOUNTER 2025-09-26 00:32 | Emergency (ER) | payer OTHER ==
[~2025-09-26] VITALS: Ht 185.4 cm; Wt 111.0 kg
[~2025-09-26 00:32] MED LIST changes: +LIDO-53 TP
[2025-09-26 00:41] VITALS: TEMP 36.8; O2SAT 99
[2025-09-26 01:29] LABS: BASOPHILS % 0.9 % (0.0-2.0); EOSINOPHILS % 2.4 % (0.0-5.0); HEMATOCRIT. 45.4 % (42.0-52.0); HEMOGLOBIN. 14.5 g/dL (14.0-18.0); LYMPHOCYTES % 27.6 % (20.0-50.0); MEAN PLATELET VOLUME 9.7 fl (7.4-10.4); MONOCYTES % 8.5 % (2.0-8.0); NEUTROPHILS % 60.6 % (40.0-76.0); PLATELET 174 x1000/uL (130-400); RED BLOOD CELL COUNT 6.00 mill/uL (4.7-6.1); RED CELL DISTRIBUTION WIDTH 16.0 % (11.6-14.6)
[2025-09-26 01:45] LABS: INR 1.0
[2025-09-26 01:56] LABS: UREA NITROGEN BLOOD 17 mg/dL (9-23)
[2025-09-26 01:58] LABS: ASPARTATE AMINOTRANSFERASE 10 IU/L (<34); BILIRUBIN DIRECT 0.1 mg/dL (<=3.0); TROPONIN I HIGH SENSITIVITY 36 ng/L (3.0-53)
[2025-09-26 01:59] LABS: BILIRUBIN TOTAL 0.3 mg/dL (0.1-1.0); PROTEIN TOTAL 6.9 g/dL (6.0-8.3)
[2025-09-26 02:09] LABS: CREATININE 1.7 mg/dL (0.6-1.3)
[2025-09-26] MEDS: ACETAMINOPHEN 1000MG/100ML 100 ML IV ONE (02:20)
[2025-09-26] MEDS: ONDANSETRON HCL 4MG/2ML INJ IV ONE (02:25)
[2025-09-26] MEDS: MAGNESIUM/ALUMINUM HYDROXIDE/SIMETHICONE 30ML UDC PO ONE (02:25)
[2025-09-26] MEDS: SODIUM CHLORIDE 0.9% 250 ML IV ONE (02:58)
[2025-09-26] MEDS: HYDRALAZINE 20MG/ML VIAL IV ONE (03:43)
[2025-09-26 04:09] VITALS: BP 170/99; PULSE 69; RESP 16; O2SAT 99
== END 2025-09-26 04:13 | disposition home or self-care (01) ==
LOC: ER 00:32 → CMPBEDREQ 09-27 07:39
DX: R10.84 Generalized abdominal pain (principal); R11.2 Nausea with vomiting, unspecified; R19.7 Diarrhea, unspecified; R06.02 Shortness of breath; I11.0 Hypertensive heart disease with heart failure; I50.9 Heart failure, unspecified; E11.9 Type 2 diabetes mellitus without complications; Z79.4 Long term (current) use of insulin; Z79.899 Other long term (current) drug therapy
CPT/HCPCS: 80076; 80048; 80320; 83880; 83690; 83735; 85025; 85610; 85730; 84484; 36415; 71045; 74176; 93005; 96361; 96365; 96375; 99285; J0360; J2405; G0480; J0131